=== PATIENT | female | born 1965 | race Hispanic/Latino ===

== ENCOUNTER 2018-03-24 10:22 | Observation (INO) | payer MEDICARE ==
[~2018-03-24] VITALS: Ht 162.6 cm; Wt 91.6 kg
[~2018-03-24 10:22] MED LIST: CALCIUM PO; CYCLOBENZAPRINE10 MG PO; ESTRADIOL1 MG PO; HYDROCODONE PO; LOSARTAN PO; LOSARTAN-HCTZ1 EACH PO; MELOXICAM7.5 MG PO; NORCO 10-325 T1 EACH PO; OXAPROZIN600 MG PO; SIMVASTATIN10 MG PO; TRAZODONE HCL100 MG PO; VIT PO; [UNRECOGNIZED DRUG - OTHER] PO
--- OUTSIDE RECORDS SUMMARY | 2018-03-24 10:26 | XMS REPORT ---
Author Organization Unknown Address [address] [place] [address] Phone [phone] Care Team Providers Care Waterworks Operator Name Role Phone KASANDRA "MARTIR YADAV MD 3 [phone] Allergies Code Code System Name Reaction Severity Status Onset No Known Allergies Active NKDA Medications Name Status Start Date Stop Date Addyi 100 mg tablet Take 1 tablet every day by oral route at bedtime for 60 days. Completed 05/24/2017 celecoxib 200 mg capsule Take 1 capsule every day by oral route for 90 days. Active Not available duloxetine 30 mg capsule,delayed release Completed 05/24/2017 estradiol 0.5 mg tablet TAKE 1 TABLET BY MOUTH EVERY DAY Active Not available fluticasone 50 mcg/actuation nasal spray,suspension [place] 2 sprays every day by intranasal route for 30 days. Active Not available hydrocodone 10 mg-acetaminophen 325 mg tablet Take 1 tablet 3 times a day by oral route for 30 days. Active Not available losartan 50 mg-hydrochlorothiazide 12.5 mg tablet TAKE 1 TABLET BY MOUTH EVERY DAY Active Not available meloxicam 15 mg tablet Completed 03/16/2016 meloxicam 7.5 mg tablet Completed 02/08/2017 methylprednisolone 4 mg tablets in a dose pack Completed 03/16/2016 omeprazole 40 mg capsule,delayed release Completed 05/24/2017 Pazeo 0.7 % eye drops Completed 09/14/2016 Premarin 0.625 mg/gram vaginal cream Completed 03/16/2016 promethazine-DM 6.25 mg-15 mg/5 mL syrup andrew 1 cucharadita por via oral cada 6 horas por gui necesaria tos Completed 08/22/2017 simvastatin 10 mg tablet Take 1 tablet every day by oral route for 90 days. Active Not available sulfamethoxazole 800 mg-trimethoprim 160 mg tablet Completed 03/16/2016 terbinafine HCl 250 mg tablet Completed 02/08/2017 tramadol 50 mg tablet Completed 03/16/2016 Problems Name Status Onset Date Source Pure Hypercholesterolemia Unknown 03/05/2015 History Pure Hyperglyceridemia Unknown 03/05/2015 History Migraine Active 03/05/2015 History Hypertensive Disorder Active 03/05/2015 History Low Back Pain Active 03/05/2015 History Screening for Disorder Unknown 03/05/2015 History Menopause Present Active 09/23/2015 History Chronic Pain Syndrome Active 09/29/2015 History Lumbosacral Spondylosis with Radiculopathy Active 09/29/2015 History Lumbosacral Radiculopathy Active 09/29/2015 History Gastric Ulcer Unknown 06/17/2016 Mixed Hyperlipidemia Active 02/08/2017 Morbid Obesity Active 08/22/2017 Lumbosacral Spondylosis without Myelopathy Active 08/22/2017 Procedures Date Name Performed by 01/22/2014 Colonoscopy Notes: rpt 10 yrs Information not available 05/09/2006 Cholecystectomy Information not available 05/09/1994 Lumbar Spine Fusion Notes: etiology: 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 Pap: - Final [facility]: [address] Normal Prev. BX: - Final [facility]: [address] Normal Source: endocervix Final [facility]: [address] Normal Statement of Adequacy: Final [facility]: [address] Normal Interpretation/result: Final [facility]: [address] Normal Comment: Final [facility]: [address] Normal Auger Supervisor: Final [facility]: [address] Normal Hpv Mrna E6/E7 not detected not detected Final [facility]: [address] 09/14/2016 CBC W/ Auto Diff Wbc 8.65 x10*3/L 2.60-11.20 x10*3/L Final [facility]: [address] [place] Rbc 4.80 10*12/L 3.93-5.87 10*12/L [facility] [facility] 13.70 g/dL 10.70-15.70 g/dL Final [facility] [address] [facility] Hematocrit 43.1 % 33.2-46.8 % Final [facility] [address] [facility] Mcv 89.8 fL 77.8-103.4 fL Final [facility] [address] [facility] Mch 28.5 pg 24.8-35.0 pg Final [facility] [address] [facility] Mchc 31.8 g/dL 31.5-35.9 g/dL Final [facility] [address] [facility] RDW-SD 43.9 fL 35.8-50.4 fL Final [facility] [address] [facility] Platelet Count 296.0 k/uL 126.7-416.1 k/uL Final [facility] [address] [facility] Mpv 11.6 fL 8.3-13.5 fL Final [facility] [address] [facility] Neut% 57.9 % 39.5-76.9 % Final [facility] [address] [facility] Lymph% 34.7 % 12.6-45.8 % Final [facility] [address] [facility] Mon% 5.9 % 3.7-12.9 % Final [facility] [address] [facility] Eos% 1.2 % 0.7-6.4 % Final [facility] [address] [facility] Baso% 0.3 % 0.1-1.5 % Final [facility]: [address] [place] [address] Neut# 5.0 x10*3/L 0.6-7.6 x10*3/L Final [facility]: [address] [place] Lymph# 3.0 x10*3/L 0.7-3.3 x10*3/L Final [facility]: [address], [place] Mon# 0.5 x10*3/L 0.2-1.0 x10*3/L Final [facility]: [address], [place] Eos# 0.10 x10*3/L 0.04-0.44 x10*3/L Final [facility]: [address], [place] Baso# 0.03 x10*3/L 0.01-0.08 x10*3/L Final [facility] [address] [facility] 09/14/2016 CMP, Serum or Plasma Alt 13 U/L 0-55 U/L Final [facility]: [address] Ast 19 U/L 5-34 U/L Final [facility]: [address] Bun 15 mg/dL 10-20 mg/dL Final [facility]: [address] Alk Phos 87 unit/L 40-150 unit/L Final [facility]: [address] Glucose 92 mg/dL 70-99 mg/dL Final [facility]: [address] Albumin 3.8 g/dL 3.5-5.0 g/dL Final [facility]: [address] Creatinine 0.72 mg/dL 0.57-1.11 mg/dL Final [facility]: [address] eGFR Non- >60 mL/min/1.73m2 >60 mL/min/1.73m2 Final [facility]: [address] Total Bilirubin 0.3 mg/dL 0.2-1.2 mg/dL Final [facility]: [address] eGFR - >60 mL/min/1.73m2 >60 mL/min/1.73m2 Final [facility]: [address] Sodium 141 mEq/L 136-145 mEq/L Final [facility]: [address] Potassium 3.9 mEq/L 3.5-5.1 mEq/L Final [facility]: [address] Chloride 106 mmol/L 98-107 mmol/L Final [facility]: [address] Total Protein 7.5 g/dL 6.4-8.3 g/dL Final [facility]: [address] Calcium 9.1 mg/dL 8.4-10.2 mg/dL Final [facility]: [address] Co2 24.0 mmol/L 22.0-29.0 mmol/L Final [facility]: [address] Anion Gap 11 calc Final [facility]: [address] 09/14/2016 Lipid Panel, Serum High Hdl 70 mg/dL 40-60 mg/dL Final [facility]: [address] High Triglyceride 207 mg/dL 0-149 mg/dL Final [facility]: [address] VLDL Calc. 41 mg/dL Final [facility]: [address] cholesterol/HDL Ratio 3 mg/dL Final [facility]: [address] non-HDL Cholesterol Calc. 140 mg/dL 0-160 mg/dL Final [facility]: [address] High Cholesterol 210 mg/dL 0-199 mg/dL [facility]: [address] LDL Calc. 99 mg/dL 0-130 mg/dL Final [facility]: [address] 09/14/2016 TSH, Serum or Plasma Tsh 1.115 uIU/mL 0.350-4.940 uIU/mL Final [facility] [address] [facility] 04/15/2016 CBC W/ Auto Diff Message: Final [facility] Lab: [address] [place] Type: 2ss,L Final [facility]: [address] [facility], [place] Question/problem specimen L unneeded Final [facility]: [address] [facility], [place] Comment Final [facility]: [address] [facility], [place] 04/15/2016 Lipid Panel, Serum High Cholesterol, Total 208 mg/dL 125- 200 mg/dL Final [facility]: [address] [facility], [place] Normal HDL Cholesterol 59 mg/dL > or=46 mg/dL Final [facility]: [address] [facility], [place] High Triglycerides 195 mg/dL <150 mg/dL Final [facility]: [address] [facility], [place] Normal LDL-cholesterol 110 mg/dL (calc) <130 mg/dL (calc) Final [facility]: [address] [facility], [place] Normal Chol/hdlc Ratio 3.5 (calc) < or=5.0 (calc) Final [facility] Lab: [address] [place] [address], [place] Normal Non HDL Cholesterol 149 mg/dL (calc) Final [facility]: [address] [place] [address], [place] 04/15/2016 CMP, Serum or Plasma Normal Glucose 93 mg/dL 65-99 mg/dL Final [facility]: [address] [facility], [place] Normal Urea Nitrogen (BUN) 22 mg/dL 7-25 mg/dL Final [facility]: [address] [facility], [place] Normal Creatinine 0.70 mg/dL 0.50-1.10 mg/dL Final [facility]: [address] [facility], [place] Normal eGFR Non-afr. Cook Islander 102 mL/min/1.73m2 > or=60 mL/min/1.73m2 Final [facility] Lab: [address] [facility], [place] Normal eGFR 118 mL/min/1.73m2 > or=60 mL/min/1.73m2 Final [facility]: [address] [facility], [place] BUN/creatinine Ratio not applicable (calc) 6-22 (calc) Final [facility] Lab: [address] [facility], [place] Normal Sodium 139 mmol/L 135-146 mmol/L Final [facility]: [address] [facility], [place] Normal Potassium 3.7 mmol/L 3.5-5.3 mmol/L Final [facility]: [address] [facility], [place] Normal Chloride 102 mmol/L 98-110 mmol/L [facility] Lab: [address] [facility], [place] Normal Carbon Dioxide 26 mmol/L 20-31 mmol/L [facility]: [address] [facility], [place] Normal Calcium 9.6 mg/dL 8.6-10.2 mg/dL [facility]: [address] [facility], [place] Normal Protein, Total 7.3 g/dL 6.1-8.1 g/dL [facility]: [address] [facility], [place] Normal Albumin 4.4 g/dL 3.6-5.1 g/dL [facility]: [address] [facility], [place] Normal Globulin 2.9 g/dL (calc) 1.9-3.7 g/dL (calc) Final [facility]: [address] [facility], [place] Normal Albumin/globulin Ratio 1.5 (calc) 1.0-2.5 (calc) [facility]: [address] [facility] [place] Normal Bilirubin, Total 0.3 mg/dL 0.2-1.2 mg/dL [facility]: [address] [facility], [place] Normal Alkaline Phosphatase 76 U/L 33-115 U/L [facility] Lab: [address] [place] Normal Ast 12 U/L 10-35 U/L [facility]: [address] [facility] [place] Normal Alt 7 U/L 6-29 U/L [facility]: [address] [place] 04/15/2016 Test Authorization Test Name: CBC [facility] Lab: [address] Test Code: 6399 [facility]: [address] Client Contact: trentlinda maradiaga [facility]: [address] [place] [address] Report Always Message Signature [facility]: [address] [place] [address] Comment [facility]: [address] Past Encounters 08/22/2017 Body Mass Index 30+ - Obesity; Lumbosacral Spondylosis with Radiculopathy; Mixed Hyperlipidemia; Hypertensive Disorder; Menopause Present; Seasonal Allergic Rhinitis; Morbid Obesity Kasandra Yadav MD: [address] [place] [phone], Ph. 05/24/2017 Body Mass Index 30+ - Obesity; Common Cold; Hypertensive Disorder; Low Back Pain; Menopause Present; Mixed Hyperlipidemia Kasandra Yadav MD: [address] [place] [phone], Ph. 02/22/2017 Gynecologic Examination; Psychosexual Dysfunction Associated with Inhibited Libido; Screening for Malignant Neoplasm of Cervix Kasandra Yadav MD: [address] [place] [phone], Ph. 02/08/2017 Hypertensive Disorder; Low Back Pain; Seasonal Allergic Rhinitis; Menopause Present; Influenza Vaccination Kasandra Yadav MD: [address] [place] [phone], Ph. 12/15/2016 Low Back Pain; Menopause Present; Chronic Pain Syndrome; Hypertensive Disorder; Pure Hypercholesterolemia TOLU Melendez: [address] [place] [phone], Ph. 09/14/2016 Adult Health Examination; Hypertensive Disorder; Low Back Pain; Chronic Pain Syndrome; Pure Hypercholesterolemia; Menopause Present; Onychomycosis of Toenails; Body Mass Index 30+ - Obesity; Advance Directive Discussed with Patient; Screening for Malignant Neoplasm of Breast TOLU Melendez: [address] [place] [phone], Ph. 06/17/2016 Low Back Pain; Menopause Present; Hypertensive Disorder; Pure Hypercholesterolemia; Onychomycosis of Toenails; Lumbosacral Spondylosis with Radiculopathy; Chronic Pain Syndrome; Gastric Ulcer TOLU Melendez: [address] [place] [address], [address] [phone], Ph. 04/15/2016 Hypertensive Disorder; Pure Hypercholesterolemia; Low Back Pain; Onychomycosis of Toenails TOLU Melendez: [id number] [facility] [address], [place] [phone], Ph. 03/16/2016 Immunization; Low Back Pain; Menopause Present; Pure Hypercholesterolemia; Hypertensive Disorder; Lumbosacral Spondylosis with Radiculopathy; Onychomycosis of Toenails Kasandra Yadav MD: [id number] [facility], [address], [place] [phone], Ph. Social History Smoking Status Never Smoker Vaccine List Vaccine Type Influenza, injectable, MDCK, quadrivalent 02/08/20170.5 mL influenza, injectable, quadrivalent 03/16/20160.5 mL influenza, seasonal, injectable 03/05/2015 Tdap 05/09/2014 Notes: 09/29/2015: Kenalog (Triamcinolone) (09/29/2015) Plan of Care Patient Instructions It was good to see you in the office today for your Medicare Annual Wellness Visit. You have been provided some information on healthy nutrition, including a diet rich in fruits and vegetables, minimizing simple carbohydrates, salt, and saturated fats. I want to encourage regular cardiovascular exercise such as walking at least 30 minutes daily, 5 times per week. Please remember to schedule any preventive health measures that we talked about today. You have also been provided education on fall prevention and community- based lifestyle interventions to help reduce health risks and promote healthy living in your [facility] folder. Screening Recommendations 1. Vaccines Pneumococcal: Influenza: This Fall Shingles: Tetanus: 2. Mammography Screening: Ordered 3. Colorectal cancer Screening Colonoscopy: Your next one in: January 2024 Fecal Occult Blood: 4. Bone Mass Measurement: 5. Pap test / Pelvic Exam Screenin. Eye Exam Screening: Ordered 7. Cholesterol Screening: Ordered 8. Diabetes Screening: Ordered Reminders Provider Appointments None recorded. Lab None recorded. Referral None recorded. Procedures None recorded. Surgeries None recorded. Imaging None recorded. Vitals 08/22/2017 08:45AM Est Patient Height Weight BMI Blood Pressure 5 ft 4 in 206.4 lbs 35.4 kg/m2 (1) 139/97 mm[Hg] (2) 114/62 mm[Hg] 05/24/2017 01:30PM Est Patient Height Weight BMI Blood Pressure 5 ft 4 in 203.8 lbs 35 kg/m2 135/99 mm[Hg] 02/22/2017 10:30AM Est Patient Height Weight BMI Blood Pressure 5 ft 4 in 201 lbs 34.5 kg/m2 140/96 mm[Hg] 02/08/2017 03:00PM Est Patient Height Weight BMI Blood Pressure 5 ft 4 in 203.4 lbs 34.9 kg/m2 120/86 mm[Hg] 12/15/2016 10:15AM Work In Same Day Height Weight BMI Blood Pressure 5 ft 4 in 197 lbs 33.8 kg/m2 152/90 mm[Hg] 09/14/2016 08:30AM Est Patient Height Weight BMI Blood Pressure 5 ft 4 in 193 lbs 33.1 kg/m2 144/94 mm[Hg] 06/17/2016 11:30AM Est Patient Height Weight BMI Blood Pressure 5 ft 4 in 184 lbs 31.6 kg/m2 130/85 mm[Hg] 04/15/2016 08:00AM Est Patient Height Weight BMI Blood Pressure 5 ft 4 in 181 lbs 31.1 kg/m2 127/81 mm[Hg] 03/16/2016 11:45AM Est Patient Height Weight BMI Blood Pressure 5 ft 4 in 179 lbs 30.7 kg/m2 128/86 mm[Hg] 09/29/2015 Height Weight BMI Blood Pressure 5 ft 4 in 181.4 lbs 31.13 kg/m2 132/87 mm[Hg] 09/23/2015 Height Weight BMI Blood Pressure 5 ft 4 in 185.6 lbs 31.85 kg/m2 121/78 mm[Hg] 09/02/2015 Height Weight BMI Blood Pressure 5 ft 4 in 186.6 lbs 32.03 kg/m2 112/80 mm[Hg] 05/16/2015 Height Weight BMI Blood Pressure 5 ft 4 in 185.2 lbs 31.79 kg/m2 110/70 mm[Hg] 03/05/2015 Height Weight BMI Blood Pressure 5 ft 4 in 180.6 lbs 31.00 kg/m2 100/76 mm[Hg] 12/03/2014 BMI 32.20 kg/m2 12/03/2014 Height Weight Blood Pressure 5 ft 4 in 187.6 lbs 123/69 mm[Hg] 09/17/2014 Height Weight BMI Blood Pressure 5 ft 4 in 187 lbs 32.09 kg/m2 100/50 mm[Hg] 09/13/2014 Height Weight BMI Blood Pressure 5 ft 4 in 186 lbs 31.92 kg/m2 134/72 mm[Hg] 09/03/2014 Height Weight BMI Blood Pressure 5 ft 4 in 188.2 lbs 32.30 kg/m2 133/70 mm[Hg] 03/14/2014 Height Weight BMI Blood Pressure 5 ft 4 in 183 lbs 31.41 kg/m2 120/80 mm[Hg] 12/12/2013 Height Weight 5 ft 4 in 190 lbs 11/05/2013 Height Weight 5 ft 4 in 188.4 lbs 07/12/2013 Height Weight 5 ft 4 in 187 lbs 05/08/2013 Height Weight 5 ft 4 in 190.4 lbs 12/01/2012 Height Weight 5 ft 4 in 190.4 lbs 11/17/2012 Height Weight 5 ft 4 in 188.4 lbs 06/21/2012 Height Weight 5 ft 4 in 182.4 lbs 04/25/2012 Height Weight 5 ft 4 in 185.6 lbs 03/08/2012 Height Weight 5 ft 4 in 185.2 lbs 11/22/2011 Height Weight 5 ft 4 in 180.8 lbs 09/24/2011 Height Weight 5 ft 4 in 182.4 lbs 08/26/2011 Height Weight 5 ft 4 in 178 lbs 08/23/2011 Height Weight 5 ft 4 in 181.4 lbs 04/22/2011 Height Weight 5 ft 4 in 177.6 lbs 01/28/2011 Height Weight 5 ft 4 in 172.6 lbs 01/20/2011 Height Weight 5 ft 4 in 175.4 lbs 10/16/2010 Height Weight 5 ft 4 in 163.8 lbs 06/01/2010 Weight 165 lbs 04/17/2010 Height Weight 5 ft 4 in 160.8 lbs 01/21/2010 Weight 169.2 lbs 01/21/2010 Height 5 ft 4 in 01/13/2010 Height Weight 5 ft 4 in 169.2 lbs 12/19/2009 Height Weight 5 ft 4 in 169 lbs 12/18/2009 Weight 169 lbs 12/16/2009 Weight 169.8 lbs 11/28/2009 Weight 178.4 lbs 08/25/2009 Weight 182.2 lbs 04/23/2009 Weight 173 lbs 12/06/2008 Height Weight 5 ft 5.5 in 167 lbs 12/03/2008 Weight 166 lbs 08/19/2008 Weight 164 lbs 08/19/2008 Height 5 ft 4 in 08/02/2008 Weight 163 lbs 04/05/2008 Weight 159.4 lbs 03/13/2008 Weight 154.5 lbs 12/22/2007 Weight 156.7 lbs 11/23/2007 Height Weight 5 ft 3.5 in 161.2 lbs
[2018-03-24] MEDS ORDERED: ONDANSETRON HCL INJ 2 MG/ML VIAL IV STA (10:36)
[2018-03-24] MEDS ORDERED: SODIUM CHLORIDE 0.9% 1000ML 1,000 ML IV STA (10:36)
[2018-03-24] MEDS ORDERED: MORPHINE SULFATE INJ 4 MG/ML INJ IV STA (10:36)
[2018-03-24] MEDS ORDERED: CEFTRIAXONE SOD 1 GM VIAL IV SCH ×3 (11:00→21:00)
[2018-03-24 11:07] LABS: BASOPHILS % 0.3 % (0.0-1.0); EOSINOPHILS % 0.1 % (0.0-6.0); HEMATOCRIT 41.6 % (34.2-44.1); HEMOGLOBIN 13.8 g/dL (12.0-16.0); LYMPHOCYTES # (AUTO) 1.9 (1.0-3.2); MEAN CORPUSCULAR HEMOGLOBIN 29.7 pg (28-32); MEAN CORPUSCULAR HGB CONC 33.2 g/dL (31-35); MEAN CORPUSCULAR VOLUME 89.5 fL (81-99); NEUTROPHILS # (AUTO) 12.8 (2.1-6.9); NEUTROPHILS % 81.2 % (38.7-80.0); PLATELET COUNT 359 x10e3/uL (140-360); RED BLOOD COUNT 4.65 x10e6/uL (3.6-5.1); RED CELL DISTRIBUTION WIDTH 13.2 % (11.7-14.4)
[2018-03-24] MEDS ORDERED: ONDANSETRON HCL INJ 2 MG/ML VIAL IV PRN (11:15)
[2018-03-24 11:24] LABS: ALBUMIN/GLOBULIN RATIO 1.1 (0.8-2.0); ANION GAP 20.4 mmol/L (8-16); CALCIUM 9.6 mg/dL (8.4-10.2); CREATININE, SERUM 1.32 mg/dL (0.57-1.11); POTASSIUM 3.4 mmol/L (3.5-5.1)
[2018-03-24 11:36] VITALS: BP 135/89
[2018-03-24 12:00] VITALS: BP 135/89
[2018-03-24] MEDS: SODIUM CHLORIDE 0.9% 1000ML 1,000 ML IV SCH ×2 (12:42→19:23)
[2018-03-24] MEDS: MORPHINE SULFATE 2 MG/ML SYR IV PRN ×2 (13:59→22:06)
[2018-03-24 14:26] LABS: CLARITY,URINE SL CLOUDY (CLEAR); COLOR,URINE YELLOW (YELLOW); KETONES,URINE NEGATIVE (NEGATIVE); LEUKOCYTE ESTERASE ,URINE NEGATIVE (NEGATIVE); NITRITE,URINE NEGATIVE (NEGATIVE); PROTEIN,URINE DIPSTICK TRACE (NEGATIVE)
[2018-03-24 14:27] LABS: BILIRUBIN,URINE 2+ (NEGATIVE); URINE UROBILINOGEN 1 mg/dL (0.2 - 1)
[2018-03-24] MEDS ORDERED: POTASSIUM CHLORIDE 20 MEQ TAB CR PO SCH (14:30)
[2018-03-24 14:39] LABS: BACTERIA,URINE MODERATE /HPF; EPITHELIAL CELLS,URINE MANY /LPF; TRANSITIONAL EPI CELLS,URINE FEW
[2018-03-24] MEDS ORDERED: LIDOCAINE HCL 2% LOCAL INJ 5 ML SDV VIAL INJ ONE (14:48)
[2018-03-24] MEDS ORDERED: SEVOFLURANE INHAL SOLN 250 ML PEN BTL ONE (14:48)
[2018-03-24] MEDS ORDERED: PROPOFOL IV EMULSION 10 MG/ML 20 ML VIAL ONE (14:48)
[2018-03-24] MEDS ORDERED: DEXAMETHASONE SOD PHOS INJ 4 MG/ML VIAL ONE (14:48)
[2018-03-24] MEDS ORDERED: ONDANSETRON HCL INJ 2 MG/ML VIAL ONE (14:48)
[2018-03-24] MEDS ORDERED: KETOROLAC TROMETHAMINE 30 MG/ML VIAL ONE (14:48)
--- NOTE | 2018-03-24 15:28 | History and Physical ---
PRIMARY CARE PROVIDER: Dr. Giancarlo Yadav. CHIEF COMPLAINT: Right flank pain x2 days. HISTORY OF PRESENT ILLNESS: Ms. Almanzar is a [id number] with a history of kidney stones who presents with right flank pain x2 days. REVIEW OF SYSTEMS: She denies fever, chills or weight loss. She denies sinus congestion or sore throat. She denies chest pain or palpitations. She denies shortness of breath, wheezing, or cough. She denies abdominal pain, but she does have right flank pain and CVA tenderness. She denies nausea, vomiting, or melena. She denies dysuria, but she does have right flank pain. She denies rash or pruritus. She denies bleeding or bruising. She denies joint pain or swelling. She does have some chronic low back pain and has had previous surgery. She denies headache, vertigo, or loss of consciousness. She denies depression, agitation, homicidal or suicidal ideation. PAST MEDICAL HISTORY: Significant for hypertension and previous kidney stones. She also has a history of back surgery and lithotripsy. REGULAR MEDICATIONS: Include estradiol 0.5 mg daily, hydrocodone as needed, meloxicam 7.5 mg daily, losartan/hydrochlorothiazide 50/12.5 daily, simvastatin 10 mg at bedtime, calcium daily. ALLERGIES: SHE HAS NO KNOWN DRUG ALLERGIES. FAMILY HISTORY: Significant for scattered hypertension. SOCIAL HISTORY: The patient is , bilingual, speaks good Nepali. She does not smoke, drink, or use illegal drugs, and she is generally independently functioning. PHYSICAL EXAM PSYCHIATRIC: She is alert and oriented x3 with normal mood and affect. CONSTITUTIONAL: She has a normal body habitus. She is in no acute distress. VITAL SIGNS: As follows: Blood pressure 135/89, pulse 83 and regular, respiratory rate 14, O2 sat 99% on room air, temperature 97.2. HEENT: Her head is atraumatic. Her eyes are anicteric with clear conjunctivae. Ears and nares are without erythema or discharge. Oropharynx is clear. NECK: Supple with no mass or thyromegaly. LYMPHATIC: She has no palpable cervical, axillary, or inguinal adenopathy. CARDIOVASCULAR: Her heart has a regular rate and rhythm without murmur or extra sound. She has no carotid bruits. She has no peripheral edema. She has palpable dorsal pedal pulses. RESPIRATORY: Lungs are clear to auscultation and percussion with normal respiratory effort. GASTROINTESTINAL: Her abdomen is soft without organomegaly, masses, or tenderness. She does have right CVA tenderness with no rebound or guarding. She has normal bowel sounds present. CUTANEOUS: Her skin is warm and dry to touch with no rash or skin breakdown. MUSCULOSKELETAL: Her joints are in normal alignment without erythema or swelling. She has no calf tenderness. NEUROLOGIC: Nonfocal with intact cranial nerves and no motor or sensory deficits. DIAGNOSTIC STUDIES: CT scan done at an outside imaging center shows a 6-mm mildly obstructing proximal right ureter stone at the right UPJ with minimal right hydronephrosis and right perinephric stranding suggesting pyelonephritis. Her CBC shows a white count of 15.7 with 81.2% neutrophils, hemoglobin 13.8, hematocrit 41.6 and platelet count 359,000. Her chemistry shows a potassium of 3.4, the rest of her electrolytes are normal. CO2 is 23, creatinine 1.32, BUN 17 for a GFR of 42. Her last GFR in our system was greater than 60 that was 2 years ago. Calcium is 9.6. Glucose is 157. Transaminases, bilirubin, and alk phos are normal. IMPRESSION AND PLAN 1. Obstructing right ureteral calculi at ureterovesical junction. Urology has been consulted. 2. Acute kidney injury. We will give IV fluids until we establish her baseline GFR. 3. Urinary tract infection. We will use IV Rocephin, pending culture results. 4. Hyperglycemia with no diagnosis of diabetes. We will check A1c and monitor her blood sugar. 5. For hypertension, we will continue her losartan. 6. For hypokalemia, we will replete with 20 mEq of KCl. 7. For prophylaxis, we will use Pepcid for GI prophylaxis and SCDs for DVT prophylaxis. Job#: [id number] DACIA
[2018-03-24 16:19] VITALS: BP 137/69
[2018-03-24] MEDS ORDERED: FAMOTIDINE 20 MG TAB PO SCH (16:30)
[2018-03-24] MEDS ORDERED: IOPAMIDOL 610MG/1ML 300 MG/ML VIAL IV ONE (16:40)
--- NOTE | 2018-03-24 16:43 | Consultation ---
DATE OF CONSULTATION: March 24, 2018 UROLOGICAL CONSULTATION ATTENDING PHYSICIAN: Dr. Mario Burnham. HISTORY: This is a 52-year-old female who comes to the hospital emergency room with a history of kidney stones. In fact, she started having pain on Tuesday, today being Tuesday. Went to see Dr. Giancarlo Yadav, who did a CT scan outside of this hospital, and today she sees Dr. Giancarlo Yadav with increased pain. The pain is right flank without radiation. There has been no vomiting or fever although she has had some nausea. The patient by history has had kidney stones approximately 10 or 12 years ago and had a ureteroscopy to remove those stones. Has not had any more problems until now. PAST MEDICAL HISTORY: Hypertension, hypercholesterolemia, history of back pain. MEDICATION: She takes Estradiol 0.5 mg daily, hydrocodone as needed, meloxicam 7.5 mg daily, losartan-hydrochlorothiazide 50/12.5 mg daily, simvastatin 10 mg daily, and calcium daily. ALLERGIES: NO KNOWN DRUG ALLERGIES. SOCIAL HISTORY: She is , has had 2 pregnancies, has had only 1 child transvaginally, and she is sexually active. PHYSICAL EXAMINATION: Urological examination essentially negative except for some pain on her back. Difficult to say whether this is a costovertebral or back pain due to her hardware on her back. COMPUTED TOMOGRAPHY SCAN: The CT scan shows a 6 mm stone on the right UPJ with minimal right hydronephrosis. The CT scan also shows that she has had a spinal fusion L3, 4 and 5, and that she has a bone island abnormal on the sacrum which has been recommended to undergo further testing. LABORATORY DATA: At the present time I do not have any labs available to me except what is written in the chart from the emergency room. RECOMMENDATIONS: Because of the symptomatology, we will proceed on with cystoscopy and placement of double J or perhaps even a ureteroscopy if the stone is amenable to be removed. Since the CT scan was done on Tuesday, that stone could have moved down lower and it may be more amenable to treat it today. If that stone is still up in the upper ureter, then a double J will be placed. I discussed that with the and the patient, gave her a pamphlet on treatment of kidney stones, discussed other treatment options; and the decision at the present time, after careful discussing spontaneous passage or not, is to proceed on with surgery. She had been taking tamsulosin to see if things could be relaxed enough that she could pass the stone, but her pain has been extremely severe today. I have discussed with the patient and the the findings on the CT regarding her sacrum and the bone island that she has there. She will need to have further testing to make sure that this is not any other problems like malignancy. She had never been told that she had an abnormality of the sacrum. Job#: [id number] EV
[2018-03-24] MEDS: FAMOTIDINE 20 MG/2 ML VIAL IV SCH (17:00)
[2018-03-24] MEDS ORDERED: TRAMADOL HCL 50 MG TAB PO PRN (18:00)
[2018-03-24 20:00] VITALS: BP 124/63
[2018-03-24 20:57] VITALS: BP 124/63
--- NOTE | 2018-03-24 21:53 | Operative Report ---
DATE OF PROCEDURE: March 24, 2018 PREOPERATIVE DIAGNOSIS: Right ureteral calculi. POSTOPERATIVE DIAGNOSIS: Right impacted ureteral calculi just below the ureteropelvic junction. ANESTHESIOLOGIST: Dr. Sosa. OPERATION PERFORMED: Cystoscopy, retrograde pyelograms, stone manipulation and placement of right double J. ESTIMATED BLOOD LOSS: None. FINDINGS: On cystoscopic findings, the patient has a small urethral caruncle. Bladder neck is normal. No evidence of cystocele. The bladder is normal. Ureteral orifice in normal position and normal shape. Retrograde pyelogram, stones in the upper right ureter, normal left kidney. The ureter on the right side is tortuous, suggestion of chronic obstruction. PROCEDURE IN DETAIL: With the patient under satisfactory general anesthesia, the patient was placed in the supine position on the operating table. Legs were placed on stirrups. Genitalia was then prepped with Betadine soap and solution and draped in usual manner. A #22-[place] cystourethroscope was then passed per urethra into the bladder. Inspection revealed findings as dictated above. At this point, a #8 cone-tipped ureteral catheter was used to inject contrast media retrograde up to both kidneys on the right side, upper ureteral stone was seen approximately 6 cm. The contrast media did not really fill up the upper pole, suggesting impaction of the stone. Guidewire was introduced all the way up to the stone, it did not go by the stone. Therefore, an open-ended catheter was used to manipulate the stone and to place a double J in place. Once the stone was manipulated, the guidewire went by the stone all the way up into the kidney. The 6-[place] K-wire universal double J was used then to go by the stone, coiled the double J up in the renal pelvis and contrast media was injected retrograde at this point to make sure there was no extravasation. The sleeve was used to disengage the pusher and leave the double J in place. After that was done and accomplished, then the patient was taken to the recovery room in satisfactory condition after all the instruments were removed. UROLOGICAL DISCHARGE INSTRUCTIONS: I spoke with her , told him of the findings and the placement of the double J. She would go home on Macrobid 1 b.i.d. and VESIcare 10 mg p.o. daily. I will be seeing her again in followup in the office and after that I will arrange for the patient to go back to the operating room for stone extraction and laser lithotripsy. Job#: [id number] SUB cc:Dr. Arpan Yadav
[2018-03-24] MEDS: CEFTRIAXONE SOD 1 GM VIAL IV SCH (22:30)
[2018-03-25 00:31] VITALS: BP 116/59
[2018-03-25] MEDS: SODIUM CHLORIDE 0.9% 1000ML 1,000 ML IV SCH (03:30)
[2018-03-25 04:50] LABS: BASOPHILS % 0.1 % (0.0-1.0); HEMATOCRIT 34.1 % (34.2-44.1); HEMOGLOBIN 11.1 g/dL (12.0-16.0); LYMPHOCYTES # (AUTO) 1.6 (1.0-3.2); LYMPHOCYTES % 12.1 % (18.0-39.1); MEAN CORPUSCULAR HEMOGLOBIN 29.8 pg (28-32); MEAN CORPUSCULAR HGB CONC 32.6 g/dL (31-35); MEAN CORPUSCULAR VOLUME 91.7 fL (81-99); MONOCYTES # (AUTO) 0.7 (0.2-0.8); MONOCYTES % 5.3 % (4.4-11.3); NEUTROPHILS # (AUTO) 10.7 (2.1-6.9); PLATELET COUNT 295 x10e3/uL (140-360); RED BLOOD COUNT 3.72 x10e6/uL (3.6-5.1); RED CELL DISTRIBUTION WIDTH 13.3 % (11.7-14.4)
[2018-03-25 05:04] LABS: ANION GAP 15.3 mmol/L (8-16); BLOOD UREA NITROGEN 18 mg/dL (7-26); BUN/CREATININE RATIO 19 (6-25); CALCIUM 8.1 mg/dL (8.4-10.2); CARBON DIOXIDE 23 mmol/L (22-29); CHLORIDE 105 mmol/L (98-107); CREATININE, SERUM 0.97 mg/dL (0.57-1.11); EST GLOMERULAR FILTRATION RATE > 60 ML/MIN (60-); GLUCOSE 129 mg/dL (74-118); POTASSIUM 4.3 mmol/L (3.5-5.1); SODIUM 139 mmol/L (136-145)
[2018-03-25 05:16] VITALS: BP 121/61
[2018-03-25 05:44] LABS: THYROID STIMULATING HORMONE 0.218 uIU/mL (0.350-4.940)
[2018-03-25 07:25] VITALS: BP 109/65
[2018-03-25] MEDS: FAMOTIDINE 20 MG/2 ML VIAL IV SCH (08:09)
[2018-03-25] MEDS: CEFTRIAXONE SOD 1 GM VIAL IV SCH (08:09)
[2018-03-25 08:50] VITALS: BP 109/65
[2018-03-25] MEDS ORDERED: LOSARTAN POTASSIUM 100 MG TAB PO SCH (09:00)
[2018-03-25] MEDS ORDERED: VESICARE5 MG PO (10:14)
[2018-03-25] MEDS ORDERED: MACROBID 100 M100 MG PO (10:14)
[2018-03-25] MEDS ORDERED: MIDAZOLAM HCL 2 MG/2 ML VIAL ONE (11:00)
[2018-03-25] MEDS ORDERED: FENTANYL CITRATE/PF 100MCG/2 ML INJ ONE (11:00)
--- NOTE | 2018-03-26 04:51 | Discharge Summary ---
ADMISSION DIAGNOSES 1. Obstructing right ureteral calculi at ureterovesical junction. 2. Acute kidney injury. 3. Urinary tract infection. 4. Hyperglycemia with no diagnosis of diabetes. 5. Hypertension. 6. Hypokalemia. DISCHARGE DIAGNOSES 1. Obstructing right ureteral calculi at ureterovesical junction. 2. Acute kidney injury. 3. Urinary tract infection. 4. Hyperglycemia with no diagnosis of diabetes. 5. Hypertension. 6. Hypokalemia. HISTORY: The patient has a history of hypertension and kidney stones. SURGICAL HISTORY: Back surgery and lithotripsy. HOSPITAL COURSE: This 52-year-old female with a history of kidney stones presents with right flank pain x2 days. On admission, urology was consulted. The patient was started on IV fluids and IV Rocephin. On March 24, 2018, the patient had cystoscopy retrograde with placement of right double J-stent for right impacted ureteral calculi just below the UPJ. Urine culture came back negative. Vital signs stable. The patient is afebrile. She will follow up with Urology, Dr. Yadav for lithotripsy and stone extraction. The patient and son understand discharge instructions and agreed to plan. The patient was resumed on home medicines and sent with VESIcare and Macrobid. Dictated by: Halle George NP MERCEDEZ LANGSTON MD Job#: [id number] GAU
--- NOTE | 2018-03-28 12:58 | Diagnostic Imaging Report ---
PROCEDURE: X-RAY RETROGRADE PYELOGRAM COMPARISON: CT scan of the abdomen and pelvis from [facility] dated 03/22/2018. INDICATIONS: Stones FINDINGS: Nine intraoperative spot images of the abdomen and pelvis were obtained. There is retrograde cannulization of both ureters with contrast injection. Contrast injection of the right ureter reveals moderate right hydronephrosis. Obstructing right proximal ureteral stone is present. A right double-J ureteral stent has been placed. Contrast injection in the left ureter demonstrates a normal ureter and collecting system. Cumulative fluoro time: 58 seconds Cumulative area dose product: 748.10 cGycm2 Cumulative air kerma: 46.03 mGy CONCLUSION: Retrograde pyelogram as described above. John Lindquist D.O. Dictated by: John Lindquist D.O. on 03/28/2018 at 12:54 Electronically approved by: John Lindquist D.O. on 03/28/2018 at 13:07
== END 2018-03-25 11:26 | disposition home or self-care (01) ==
LOC: ER 10:22 → ERHOLD 11:15 → MED/SURG2 11:41
PROVIDERS: ADMIT Internal Medicine; ATTEND Internal Medicine
DX: N20.1 Calculus of ureter (principal); N17.9 Acute kidney failure, unspecified; N39.0 Urinary tract infection, site not specified; R73.9 Hyperglycemia, unspecified; I10 Essential (primary) hypertension; E87.6 Hypokalemia; E78.00 Pure hypercholesterolemia, unspecified; Z82.49 Family history of ischemic heart disease and other diseases of the circulatory system; Z87.442 Personal history of urinary calculi
CPT/HCPCS: 36415 ×2; 52330; 52332; 74420; 80048; 80053; 81001; 83036; 83690; 83735; 84443; 85025 ×2; 87086; 99284; C2625; G0378 ×2; J0696 ×2; J1100; J1885; J2001; J2250; J2270 ×2; J2405; J2704; J7030 ×2; Q9967

== ENCOUNTER 2020-12-10 21:08 | Inpatient (IN) | payer MEDICARE ==
[~2020-12-10] VITALS: Ht 160 cm; Wt 100.8 kg
[~2020-12-10 21:08] MED LIST changes: +MACROBID 100 M100 MG PO; +VESICARE5 MG PO
[2020-12-10] MEDS ORDERED: ONDANSETRON HCL INJ 2MG/ML 2ML 2 MG/ML VIAL IV STA (21:46)
[2020-12-10 21:59] LABS: BASOPHILS # (AUTO) 0.1 (0.0-0.1); BASOPHILS % 0.3 % (0.0-1.0); EOSINOPHILS # (AUTO) 0.1 (0.0-0.4); EOSINOPHILS % 0.3 % (0.0-6.0); HEMATOCRIT 44.7 % (34.2-44.1); HEMOGLOBIN 14.1 g/dL (12.0-16.0); LYMPHOCYTES # (AUTO) 2.8 (1.0-3.2); LYMPHOCYTES % 15.7 % (18.0-39.1); MEAN CORPUSCULAR HEMOGLOBIN 28.3 pg (28-32); MEAN CORPUSCULAR HGB CONC 31.5 g/dL (31-35); MEAN CORPUSCULAR VOLUME 89.6 fL (81-99); MONOCYTES # (AUTO) 0.8 (0.2-0.8); MONOCYTES % 4.3 % (4.4-11.3); NEUTROPHILS % 78.8 % (38.7-80.0); PLATELET COUNT 328 x10e3/uL (140-360); RED BLOOD COUNT 4.99 x10e6/uL (3.6-5.1); RED CELL DISTRIBUTION WIDTH 13.7 % (11.7-14.4)
[2020-12-10] MEDS ORDERED: FENTANYL CITRATE/PF 100MCG/2 ML INJ IV ONE (22:00)
[2020-12-10 22:19] LABS: ALBUMIN 4.3 g/dL (3.5-5.0); ANION GAP 17.9 mmol/L (8-16); CALCIUM 9.7 mg/dL (8.4-10.2); CREATININE, SERUM 0.79 mg/dL (0.57-1.11); POTASSIUM 3.9 mmol/L (3.5-5.1)
[2020-12-10] MEDS ORDERED: IOPAMIDOL 370 MG/ML 200 ML INFUS..BTL INJ ONE (22:35)
[2020-12-10] MEDS ORDERED: SODIUM CHLORIDE 0.9% 50ML 50 ML ONE (22:35)
[2020-12-10 23:33] LABS: CLARITY,URINE SL CLOUDY (CLEAR); COLOR,URINE YELLOW (YELLOW); KETONES,URINE 2+ (NEGATIVE); LEUKOCYTE ESTERASE ,URINE NEGATIVE (NEGATIVE); NITRITE,URINE NEGATIVE (NEGATIVE); PROTEIN,URINE DIPSTICK NEGATIVE (NEGATIVE); URINE UROBILINOGEN 0.2 mg/dL (0.2 - 1)
[2020-12-10 23:39] LABS: AMORPHOUS SEDIMENT,URINE MODERATE (FEW); BACTERIA,URINE FEW /HPF; EPITHELIAL CELLS,URINE MANY /LPF; RBC,URINE 0-5 /HPF (0-5); WBC,URINE (MAN) 0-5 /HPF (0-5)
[2020-12-10] MEDS ORDERED: PIPERACILLIN/TAZOBACTAM 4.5 GM in SODIUM CHLORIDE 0.9% 100 ML IV STA (23:58)
[2020-12-11] VITALS (13 sets, daily range): BP systolic 95–118; BP diastolic 57–75
[2020-12-11] MEDS ORDERED: PIPERACILLIN/TAZOBACTAM 2.25 GM in SODIUM CHLORIDE 0.9% 50ML 50 ML IV ONE ×2 (00:15→00:45)
[2020-12-11] MEDS ORDERED: LACTATED RINGER'S 1,000 ML INJ ONE (00:15)
[2020-12-11] MEDS: SODIUM CHLORIDE 0.9% 1000ML 1,000 ML IV SCH ×3 (02:03→22:16)
[2020-12-11 06:06] LABS: BASOPHILS # (AUTO) 0.1 (0.0-0.1); BASOPHILS % 0.4 % (0.0-1.0); EOSINOPHILS # (AUTO) 0.1 (0.0-0.4); EOSINOPHILS % 0.5 % (0.0-6.0); HEMATOCRIT 40.6 % (34.2-44.1); HEMOGLOBIN 13.1 g/dL (12.0-16.0); LYMPHOCYTES # (AUTO) 2.5 (1.0-3.2); LYMPHOCYTES % 16.3 % (18.0-39.1); MEAN CORPUSCULAR HEMOGLOBIN 28.6 pg (28-32); MEAN CORPUSCULAR HGB CONC 32.3 g/dL (31-35); MEAN CORPUSCULAR VOLUME 88.6 fL (81-99); MONOCYTES # (AUTO) 0.9 (0.2-0.8); MONOCYTES % 5.6 % (4.4-11.3); NEUTROPHILS # (AUTO) 11.9 (2.1-6.9); NEUTROPHILS % 76.8 % (38.7-80.0); PLATELET COUNT 291 x10e3/uL (140-360); RED BLOOD COUNT 4.58 x10e6/uL (3.6-5.1); RED CELL DISTRIBUTION WIDTH 13.4 % (11.7-14.4)
[2020-12-11 06:23] LABS: ANION GAP 13.8 mmol/L (8-16); CALCIUM 9.1 mg/dL (8.4-10.2); CREATININE, SERUM 0.71 mg/dL (0.57-1.11); POTASSIUM 3.8 mmol/L (3.5-5.1)
[2020-12-11] MEDS ORDERED: METFORMIN HCL500 MG PO (07:18)
[2020-12-11] MEDS ORDERED: IBUPROFEN200 MG PO (07:18)
[2020-12-11] MEDS ORDERED: CRESTOR10 MG PO (07:18)
[2020-12-11] MEDS ORDERED: DIOVAN160 MG PO (07:18)
[2020-12-11] MEDS ORDERED: LYRICA25 MG PO (07:18)
[2020-12-11] MEDS ORDERED: ASPIRIN81 MG PO (07:18)
[2020-12-11] MEDS ORDERED: DEXTROSE 50% SYRINGE 50 ML IV PRN (09:00)
[2020-12-11] MEDS: PIPERACILLIN/TAZOBACTAM 3.375 GM in SODIUM CHLORIDE 0.9% 50ML 50 ML IV SCH ×2 (10:02→17:09)
[2020-12-11] MEDS: INSULIN LISPRO 100 UNIT/1 ML 3ML VIAL SQ SCH ×2 (10:59→18:00)
[2020-12-11] MEDS: ONDANSETRON HCL INJ 2MG/ML 2ML 2 MG/ML VIAL IV PRN (15:49)
[2020-12-11] MEDS: MORPHINE SULFATE INJ 4 MG/ML INJ 1ML IV PRN (15:49)
[2020-12-12] MEDS: PIPERACILLIN/TAZOBACTAM 3.375 GM in SODIUM CHLORIDE 0.9% 50ML 50 ML IV SCH ×3 (00:29→16:23)
[2020-12-12 04:00] VITALS: BP 109/73
[2020-12-12 04:53] LABS: BASOPHILS # (AUTO) 0.1 (0.0-0.1); BASOPHILS % 0.6 % (0.0-1.0); EOSINOPHILS # (AUTO) 0.3 (0.0-0.4); EOSINOPHILS % 2.9 % (0.0-6.0); HEMATOCRIT 38.2 % (34.2-44.1); HEMOGLOBIN 11.9 g/dL (12.0-16.0); LYMPHOCYTES # (AUTO) 2.8 (1.0-3.2); LYMPHOCYTES % 32.4 % (18.0-39.1); MEAN CORPUSCULAR HEMOGLOBIN 28.5 pg (28-32); MEAN CORPUSCULAR HGB CONC 31.2 g/dL (31-35); MEAN CORPUSCULAR VOLUME 91.4 fL (81-99); MONOCYTES # (AUTO) 0.5 (0.2-0.8); NEUTROPHILS # (AUTO) 4.9 (2.1-6.9); NEUTROPHILS % 57.9 % (38.7-80.0); PLATELET COUNT 236 x10e3/uL (140-360); RED BLOOD COUNT 4.18 x10e6/uL (3.6-5.1)
[2020-12-12 05:20] LABS: ANION GAP 10.6 mmol/L (8-16); CALCIUM 8.4 mg/dL (8.4-10.2); CREATININE, SERUM 0.69 mg/dL (0.57-1.11); POTASSIUM 3.6 mmol/L (3.5-5.1)
[2020-12-12] MEDS: INSULIN LISPRO 100 UNIT/1 ML 3ML VIAL SQ SCH ×5 (06:00→23:45)
[2020-12-12] MEDS: SODIUM CHLORIDE 0.9% 1000ML 1,000 ML IV SCH ×2 (06:16→14:03)
[2020-12-12 07:57] VITALS: BP 110/64
[2020-12-12 11:20] VITALS: BP 112/67
[2020-12-12 15:53] VITALS: BP 116/77
[2020-12-12] MEDS: ONDANSETRON HCL INJ 2MG/ML 2ML 2 MG/ML VIAL IV PRN (19:40)
[2020-12-12] MEDS: MORPHINE SULFATE INJ 4 MG/ML INJ 1ML IV PRN (19:40)
[2020-12-12 20:18] VITALS: BP 123/68
[2020-12-12 20:58] VITALS: BP 123/68
[2020-12-12] MEDS: BISACODYL 10 MG SUPP PR SCH (21:19)
[2020-12-12] MEDS: MAGNESIUM/ALUMINUM/SIMETHICONE 30 ML UDC PO SCH (21:19)
[2020-12-13 00:06] VITALS: BP 114/70
[2020-12-13] MEDS: PIPERACILLIN/TAZOBACTAM 3.375 GM in SODIUM CHLORIDE 0.9% 50ML 50 ML IV SCH ×3 (00:43→16:56)
[2020-12-13 04:00] VITALS: BP 115/59
[2020-12-13] MEDS: INSULIN LISPRO 100 UNIT/1 ML 3ML VIAL SQ SCH ×2 (06:00→11:40)
[2020-12-13] MEDS: SODIUM CHLORIDE 0.9% 1000ML 1,000 ML IV SCH (07:09)
[2020-12-13] MEDS: BISACODYL 10 MG SUPP PR SCH (08:00)
[2020-12-13 08:14] VITALS: BP 109/73
[2020-12-13 09:00] VITALS: BP 109/73
[2020-12-13] MEDS: MAGNESIUM/ALUMINUM/SIMETHICONE 30 ML UDC PO SCH ×2 (09:00→16:56)
[2020-12-13 11:27] VITALS: BP 111/70
[2020-12-13 15:26] VITALS: BP 135/74
[2020-12-13] MEDS ORDERED: SODIUM CHLORIDE 0.9% 50ML 50 ML ONE (16:08)
[2020-12-13] MEDS ORDERED: CIPRO500 MG PO (17:08)
[2020-12-13] MEDS ORDERED: FLAGYL375 MG PO (17:09)
[2020-12-13] MEDS ORDERED: ONDANSETRON ODT4 MG SL (17:10)
[2020-12-13] MEDS ORDERED: PANTOPRAZOLE SO40 MG PO (17:11)
== END 2020-12-13 17:45 | disposition home or self-care (01) | DRG 390 ==
LOC: ER 21:24 → ERHOLD 23:52 → MED/SURG2 12-11 01:04 → MED/SURG 12-12 16:37
PROVIDERS: ADMIT Internal Medicine; ATTEND Internal Medicine
DX: K56.600 Partial intestinal obstruction, unspecified as to cause (principal); K29.70 Gastritis, unspecified, without bleeding; Z90.49 Acquired absence of other specified parts of digestive tract; I10 Essential (primary) hypertension; Z87.442 Personal history of urinary calculi; E78.5 Hyperlipidemia, unspecified; E11.9 Type 2 diabetes mellitus without complications; E66.9 Obesity, unspecified; M19.90 Unspecified osteoarthritis, unspecified site; M51.36 Other intervertebral disc degeneration, lumbar region; Z68.39 Body mass index [BMI] 39.0-39.9, adult; Z90.3 Acquired absence of stomach [part of]; K56.601 Complete intestinal obstruction, unspecified as to cause; Z20.822 Contact with and (suspected) exposure to COVID-19; Z79.84 Long term (current) use of oral hypoglycemic drugs
CPT/HCPCS: 36415; 74018; 74022; 74177; 80048; 80053; 81001; 82948; 83690; 84484; 85025; 93005; 96361; 99284; J2270; J2405; J2543; J3010; J7030; J7121; Q9967; U0002

== ENCOUNTER 2022-05-31 23:13 | Observation (INO) | payer MEDICARE ==
[~2022-05-31] VITALS: Ht 162.6 cm; Wt 88.5 kg
[~2022-05-31 23:13] MED LIST changes: +ASPIRIN81 MG PO; +CIPRO500 MG PO; +CRESTOR10 MG PO; +DIOVAN160 MG PO; +FLAGYL375 MG PO; +IBUPROFEN200 MG PO; +LYRICA25 MG PO; +METFORMIN HCL500 MG PO; +ONDANSETRON ODT4 MG SL; +PANTOPRAZOLE SO40 MG PO
[2022-06-01] MEDS ORDERED: ONDANSETRON HCL INJ 2MG/ML 2ML 2 MG/ML VIAL IV STA (00:01)
[2022-06-01] MEDS ORDERED: KETOROLAC TROMETHAMINE 30 MG/ML VIAL IV STA (00:01)
[2022-06-01 00:23] LABS: BASOPHILS # (AUTO) 0.1 (0.0-0.1); BASOPHILS % 0.5 % (0.0-1.0); EOSINOPHILS % 0.2 % (0.0-6.0); HEMATOCRIT 42.2 % (34.2-44.1); HEMOGLOBIN 12.6 g/dL (12.0-16.0); LYMPHOCYTES % 12.4 % (18.0-39.1); MEAN CORPUSCULAR HEMOGLOBIN 29.7 pg (28-32); MEAN CORPUSCULAR HGB CONC 29.9 g/dL (31-35); MEAN CORPUSCULAR VOLUME 99.5 fL (81-99); MONOCYTES # (AUTO) 0.8 (0.2-0.8); MONOCYTES % 5.1 % (4.4-11.3); NEUTROPHILS # (AUTO) 13.4 (2.1-6.9); NEUTROPHILS % 81.3 % (38.7-80.0); PLATELET COUNT 268 x10e3/uL (140-360); RED BLOOD COUNT 4.24 x10e6/uL (3.6-5.1); RED CELL DISTRIBUTION WIDTH 14.3 % (11.7-14.4)
[2022-06-01 00:24] LABS: CLARITY,URINE SL CLOUDY (CLEAR); COLOR,URINE YELLOW (YELLOW); KETONES,URINE TRACE (NEGATIVE); LEUKOCYTE ESTERASE ,URINE NEGATIVE (NEGATIVE); NITRITE,URINE NEGATIVE (NEGATIVE); PROTEIN,URINE DIPSTICK 1+ (NEGATIVE); URINE UROBILINOGEN 0.2 mg/dL (0.2 - 1)
[2022-06-01 00:29] LABS: BACTERIA,URINE FEW /HPF; EPITHELIAL CELLS,URINE MODERATE /LPF; RBC,URINE 21-50 /HPF (0-5)
[2022-06-01 00:37] LABS: ANION GAP 16.2 mmol/L (8-16); CALCIUM 9.9 mg/dL (8.4-10.2); CREATININE, SERUM 0.8 mg/dL (0.57-1.11); POTASSIUM 4.2 mmol/L (3.5-5.1)
[2022-06-01] MEDS ORDERED: DEXTROSE 50% SYRINGE 50 ML IV PRN (02:00)
[2022-06-01] MEDS ORDERED: SODIUM CHLORIDE 0.9% 1000ML 1,000 ML IV SCH (02:00)
[2022-06-01] MEDS ORDERED: ONDANSETRON HCL INJ 2MG/ML 2ML 2 MG/ML VIAL IV PRN (02:00)
[2022-06-01] MEDS: Morphine 4mg INJECTION 4 MG/ML INJ IV PRN ×2 (07:24→15:57)
[2022-06-01] MEDS: INSULIN REGULAR, HUMAN 100 UNIT/1 ML SQ SCH ×3 (07:28→16:58)
[2022-06-01 08:00] VITALS: BP 144/72
[2022-06-01 08:04] VITALS: BP 144/72
[2022-06-01] MEDS: LACTATED RINGER'S 1,000 ML INJ SCH ×2 (08:24→17:26)
[2022-06-01 08:40] VITALS: BP 144/72
[2022-06-01 08:47] VITALS: BP 144/72
[2022-06-01] MEDS ORDERED: IOPAMIDOL 610MG/1ML 300 MG/ML VIAL IV ONE ×2 (12:27→14:33)
[2022-06-01 12:30] VITALS: BP 127/78
[2022-06-01] MEDS ORDERED: DEXAMETHASONE SOD PHOS INJ 4 MG/ML SDV ONE (12:34)
[2022-06-01] MEDS ORDERED: PROPOFOL IV EMULSION 10 MG/ML 20 ML VIAL ONE (12:34)
[2022-06-01] MEDS ORDERED: ONDANSETRON HCL INJ 2MG/ML 2ML 2 MG/ML VIAL ONE (12:34)
[2022-06-01] MEDS ORDERED: SEVOFLURANE INHAL SOLN 250 ML PEN BTL ONE (12:34)
[2022-06-01] MEDS ORDERED: POVIDONE IODINE 0.05% 0.05 % ML PO ONE (12:34)
[2022-06-01] MEDS ORDERED: LIDOCAINE HCL 2% LOCAL INJ 5 ML SDV VIAL INJ ONE (12:34)
[2022-06-01] MEDS ORDERED: FENTANYL CITRATE/PF 100MCG/2 ML INJ ONE (12:39)
[2022-06-01] MEDS ORDERED: TARON FORTE CA1 EACH PO (15:19)
[2022-06-01] MEDS ORDERED: ULTRAM 50MG50 MG PO ×3 (15:19→18:05)
[2022-06-01] MEDS ORDERED: ASPIRIN81 MG PO (15:19)
[2022-06-01] MEDS ORDERED: PAROXETINE HCL20 MG PO (15:19)
[2022-06-01] MEDS ORDERED: GLIPIZIDE5 MG PO (15:19)
[2022-06-01] MEDS ORDERED: OMEPRAZOLE40 MG PO (15:19)
[2022-06-01 16:02] VITALS: BP 121/73
[2022-06-01] MEDS ORDERED: ONDANSETRON ODT8 MG PO (18:00)
[2022-06-01] MEDS ORDERED: TRAMADOL HCL 50 MG TAB PO PRN (18:00)
[2022-06-01] MEDS ORDERED: VIT C PO SCH (21:00)
[2022-06-01] MEDS ORDERED: CRESTOR 10MG PO SCH (21:00)
[2022-06-01] MEDS ORDERED: B12 PO SCH (21:00)
[2022-06-01] MEDS ORDERED: [UNRECOGNIZED DRUG - OTHER] PO SCH (21:00)
[2022-06-01] MEDS ORDERED: SIMVASTATIN 40 MG TAB PO SCH (21:00)
[2022-06-01] MEDS ORDERED: PAROXETINE HCL 20 MG TAB PO SCH (21:00)
[2022-06-02] MEDS ORDERED: PANTOPRAZOLE SOD 40 MG TABEC PO SCH (07:30)
[2022-06-02] MEDS ORDERED: GLIPIZIDE 5 MG TAB PO SCH (07:30)
[2022-06-02] MEDS ORDERED: METFORMIN HCL 500 MG TAB PO SCH (08:00)
[2022-06-02] MEDS ORDERED: VALSARTAN 80 MG TAB PO SCH (09:00)
[2022-06-02] MEDS ORDERED: ASPIRIN 81 MG CHEW TAB PO SCH (09:00)
== END 2022-06-01 18:40 | disposition home or self-care (01) ==
LOC: ER 23:21 → ERHOLD 06-01 02:00 → MED/SURG 06-01 07:45
PROVIDERS: ADMIT Internal Medicine; ATTEND Internal Medicine
DX: N13.6 Pyonephrosis (principal); E11.65 Type 2 diabetes mellitus with hyperglycemia; Z79.4 Long term (current) use of insulin; Z20.822 Contact with and (suspected) exposure to COVID-19; I10 Essential (primary) hypertension; E78.5 Hyperlipidemia, unspecified; Z79.84 Long term (current) use of oral hypoglycemic drugs
CPT/HCPCS: 36415; 52330; 52332; 74176; 74420; 80048; 81001; 82948; 85025; 87040; 87086; 99284; C1758 ×2; C2625; G0378; J0696; J1100; J1885; J2001; J2270; J2405; J2704; J3010; J7030; J7121; Q9967; U0002